=== PATIENT | male | born 1960 | race Caucasian/White ===

== ENCOUNTER 2016-08-22 12:15 | Emergency (ER) | payer BC ==
[~2016-08-22 12:15] MED LIST: LORTAB 5-325 M1 EACH PO
--- NOTE | 2016-09-04 15:51 | ER ---
ADMIT: 08/22/2016 RM/LOC: ER [facility] MR#: [id number] [facility] [id number] [place], [place] [id number] ALEXIA CRUZ [address] [place] [address] Emergency Room Report SEX: M AGE: 56 : 1960 DATE: 08/22/2016 A 56-year-old gentleman who was moving cars and trailers yesterday comes in today with complaints of back pain. It is more on the right, not over the spine, but along the paraspinous and the right costophrenic, costovertebral angle. See T-sheet for history and physical. CT stone was negative. The patient is diagnosed with back pain, given prescription for Ultram and Flexeril, and a PT/OT evaluation. He is to use heating pad to the area. Follow up if not better in 2 or 3 days. DIAGNOSIS: Back pain/strain. Shahid Gutiérrez MD/ sruthil JOB #: [id number] CC: Lee Durbin MD, Attending Physician Arlette Oneill MD, Family Physician
== END 2016-08-22 14:20 | disposition home or self-care (01) ==
LOC: ER 12:15
DX: S29.012A Strain of muscle and tendon of back wall of thorax, initial encounter (principal); F17.200 Nicotine dependence, unspecified, uncomplicated; E03.9 Hypothyroidism, unspecified; Z79.899 Other long term (current) drug therapy; X50.9XXA Other and unspecified overexertion or strenuous movements or postures, initial encounter; Y92.69 Other specified industrial and construction area as the place of occurrence of the external cause